=== PATIENT | male | born 1965 | race Caucasian/White ===

== ENCOUNTER 2024-03-24 17:36 | Emergency (ER) | payer BC | END 2024-03-24 21:04 | disposition home or self-care (01) | LOC: JP.ED 17:36 | DX: S62.164A Nondisplaced fracture of pisiform, right wrist, initial encounter for closed fracture (principal); S52.352A Displaced comminuted fracture of shaft of radius, left arm, initial encounter for closed fracture; S39.012A Strain of muscle, fascia and tendon of lower back, initial encounter; Z79.899 Other long term (current) drug therapy; Z86.16 Personal history of COVID-19; W17.89XA Other fall from one level to another, initial encounter | CPT/HCPCS: 29125; 72110; 72110-26; 731102650; 73110-50; 73590-26-RT; 73590-RT; 99283; 99283-25 ==